=== PATIENT | female | born 1970 | race Caucasian/White ===

== ENCOUNTER 2016-11-08 00:17 | Inpatient (IN) | payer OTHER ==
--- NOTE | ~2016-11-08 | DS ---
Unit #: [id number] #: [id number] Patient: JASON TALBERT [id number] [place] [address] [id number] MR#: [id number] NAME: JASON TALBERT. ROOM: 16 Age: 45 Sex: F Admission Date: 11/08/2016 : 1970 Discharge Date: 11/13/2016 Attending Physician: Miguel Ángel Mays M.D. Primary Care Physician: Primary Care Physician No DISCHARGE SUMMARY REASON FOR ADMISSION Depression. DIAGNOSTIC STUDIES LABORATORY RESULTS: Unremarkable except alkaline phosphatase 115. HOSPITAL COURSE The patient was admitted to inpatient unit on 11/08/2016 and discharged on 11/13/2016. The patient was treated with group therapy, individual therapy, and medication management. The patient responded well with the above modalities of treatment. Subsequently, the patient was discharged with a plan to follow up in outpatient program. DISCHARGE MEDICATIONS Neurontin 800 mg q.i.d. for neuropathy, Celexa 40 mg once daily for depression, Desyrel 100 mg at bedtime for sleep, and Vistaril 25 mg q.i.d. for anxiety. DISCHARGE DIAGNOSES Psychiatric: 1. Major depressive disorder, recurrent, severe. 2. Opioid use disorder, severe. 3. Cannabis use disorder, moderate. Secondary diagnosis: Deferred. Medical diagnosis: Please refer to H and P. Stressors: Psychosocial stressors. DISCHARGE INSTRUCTIONS The patient is to follow up in outpatient clinic as per social services aide. CONDITION ON DISCHARGE The patient was pleasant and cooperative. Denied any psychotic symptom or any suicidal ideation. PROGNOSIS Guarded. DIET AND ACTIVITY As tolerated. Unit #: [id number] #: [id number] Patient: JASON TALBERT Dictated by... Santiago FelipeC/marisl TD: 11/14/2016 18:07 JOB #: [id number] DISCHARGE SUMMARY X Miguel Ángel Mays MD X DISCHARGE SUMMARY
--- NOTE | ~2016-11-08 | PN ---
Unit #: [id number] #: [id number] Patient: JASON TALBERT [id number] [facility] [address] [place] [address] [id number] MR#: [id number] NAME: JASON TALBERT. ROOM: [facility] Age: 45 Sex: F Admission Date: 11/08/2016 : 1970 Attending Physician: Miguel Ángel Mays M.D. Admitting Physician: Miguel Ángel Mays M.D. Primary Care Physician: Primary Care Physician No [facility] PROGRESS NOTES DATE OF SERVICE 11/09/2016 DISCUSSION Ms. Soria is a 45-year-old white female seen on 11/09/2016. The patient was isolative, guarded, flat affect. The patient reports making progress. Mood continues to be sad, dysphoric, and flat affect, guarded. The patient was able to contract for safety, but still having above-mentioned symptoms. Complete Review of Systems: Unremarkable. MENTAL STATUS EXAMINATION General Appearance: The patient dressed casually. Attention span, concentration: Fair. Oriented in place and person. Mood and affect: Sad, dysphoric, withdrawn, isolative. Speech: Monotone. Thought process: [place]. Association: The patient denied any thoughts of harming self or others or any psychotic symptom. Recent and remote memory: Poor. Insight and judgment: Poor. DIAGNOSES 1. Mood disorder not otherwise specified. 2. Rule out bipolar mood disorder. ASSESSMENT/PLAN Advised to continue with current medication and therapeutic protocol. We will monitor response to medication and make further adjustment of medication as the patient is still having significant symptoms of depression. The patient also has a history of mild MR, chronically mentally ill. [facility] and receives outpatient services through [facility]. Dictated by... Santiago Felipe/nick TD: 11/11/2016 12:43 JOB #: [id number] Unit #: [id number] #: [id number] Patient: JASON TALBERT [facility] PROGRESS NOTES X Miguel Ángel Mays MD X PROGRESS NOTE
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
--- NOTE | ~2016-11-08 | PN ---
Unit #: [id number] #: [id number] Patient: ESTELLA TALBERT [id number] [facility] [address] [place] [address] [id number] MR#: [id number] NAME: ESTELLA TALBERT. ROOM: 16 Age: 45 Sex: F Admission Date: 11/08/2016 : 1970 Attending Physician: Miguel Ángel Mays M.D. Admitting Physician: Miguel Ángel Mays M.D. Primary Care Physician: Primary Care Physician Marleny ASH PROGRESS NOTES DATE 11/10/2016 DISCUSSION Estella is a 45-year-old female seen on 11/10/2016. The patient continues to be sad, dysphoric, withdrawn, isolative, flat affect, guarded. The patient reports making progress. . Complete review of systems unremarkable. MENTAL STATUS EXAMINATION General appearance: Patient dressed casually. Attention span and concentration fair. Oriented in place and person. Mood and affect sad/dysphoric. Withdrawn, isolative, flat affect, guarded. The patient however, denied any thoughts of harming self or others. Speech monotone. . Recent and remote memory poor. Insight and judgment poor. DIAGNOSIS Major depressive disorder ASSESSMENT/PLAN Advised to continue with the current medication and therapy protocol. We will monitor response to medication and make further adjustment of medication. Dictated by... Santiago Felipe/niya TD: 11/12/2016 08:47 JOB #: [id number] Unit #: [id number] #: [id number] Patient: ESTELLA TALBERT [facility] PROGRESS NOTES X Miguel Ángel Mays MD PROGRESS NOTE
--- NOTE | ~2016-11-08 | HP ---
Unit #: [id number] #: [id number] Patient: ESTELLA TALBERT [id number] [place] [address] [id number] I MR#: [id number] NAME: ESTELLA TALBERT. ROOM: 16 Age: 45 Sex: F Admission Date: 11/08/2016 : 1970 Attending Physician: Miguel Ángel Mays M.D. Admitting Physician: Miguel Ángel Mays M.D. Primary Care Physician: Primary Care Physician No HISTORY AND PHYSICAL HISTORY OF PRESENT ILLNESS Estella is a 45 year old admitted to [address] [place] [address] because of her abuse of opioids. PAST MEDICAL HISTORY 1. History of opioid abuse. 2. Hypothyroidism. 3. COPD. 4. Seizure disorder. 5. Degenerative disc disease. 6. Hyperlipidemia. PAST SURGICAL HISTORY Low back. ALLERGIES No known drug allergies. SOCIAL HISTORY Smokes one pack per day. Denies alcohol. Admits to a long history of opioid abuse. FAMILY HISTORY Medically noncontributory. REVIEW OF SYSTEMS CONSTITUTIONAL: No fever or chills. HEENT: Denies any sore throat, ear pain or runny nose. CARDIOVASCULAR: Denies chest pain, irregular heart rhythm or palpitations. CHEST: Denies shortness of breath or cough. No hemoptysis. GASTROINTESTINAL: Denies nausea, vomiting, diarrhea or chronic constipation. ENDOCRINE: Denies history of increased thirst or urination. No recent significant weight loss or gain. GENITOURINARY: Denies dysuria, frequency, or hematuria. SKIN: Denies any rashes. HEMATOLOGIC: Denies history of increased bleeding or bruising. MUSCULOSKELETAL: Denies any hot, swollen joints. No generalized muscle pain. NEUROLOGIC: Denies problems with vision or speech. No frequent, severe headaches. No numbness, tingling or weakness in any extremities. Denies loss of bladder or bowel control. CURRENT MEDICATIONS Unit #: [id number] #: [id number] Patient: ESTELLA TALBERT 1. Detox protocol 2. Lipitor 20 mg daily 3. Macrobid 100 mg daily 4. Dilantin 300 mg b.i.d. 5. Nicotine patch 14 mg daily 6. Symbicort 2 puffs b.i.d. 7. Keppra 1500 units b.i.d. 8. Synthroid 0.05 mg daily 9. Claritin 10 mg daily 10. Celexa 40 mg daily 11. Neurontin 800 mg q.i.d. PHYSICAL EXAMINATION GENERAL: Alert, well-nourished, in no apparent distress. VITAL SIGNS: Blood pressure 104/82, heart rate 80, respirations 16, temperature 98.6. WEIGHT: 176 pounds. HEIGHT: 5'4". SKIN: Warm and dry without rash or lesion. HEENT: Normocephalic. TMs not viewed. Oral and nasal passages clear. Conjunctivae clear. Pupils equal, round and reactive to light and accommodation. Extraocular movements intact. NECK: Supple without lymphadenopathy or thyromegaly. HEART: Regular rate and rhythm without murmur. LUNGS: Clear. ABDOMEN: Soft, nontender. : Not done. EXTREMITIES: No evidence of cyanosis, clubbing or edema. Moves all extremities without focal deficit. NEUROLOGICAL: Grossly within normal limits. Cranial Nerves: II: Visual presley are intact. III, IV AND : Extraocular movements are intact. Pupils are equal, round and reactive to light. V: Facial sensation is grossly normal. VII: Facial movements and expression are normal. VIII: Auditory acuity grossly intact. IX, X: Uvula is midline. Phonation is normal. XI: Patient shrugs shoulders and turns head normally. XII: Tongue protrudes in the midline. Sensory and Motor Function: Sensory and motor sensation is grossly normal. Motor: moves all extremities well. Coordination: Gait is normal. Deep Tendon Reflexes: Intact. IMPRESSION Psychiatric admission RECOMMENDATIONS PSYCHIATRIC: Per psychiatrist. MEDICAL: 1. I see no contraindications to participating in facility's activities. 2. Continue Lipitor, Dilantin, Symbicort, Keppra, Synthroid. Check a Dilantin level. MEDICAL PROGNOSIS Good. MEDICAL CONDITION Stable. Unit #: [id number] #: [id number] Patient: ALLBRITTEN,ESTELLA Martinez Dictated by... Angelica Green P.A.-C. for Santiago Nunez/ryan TD: 11/08/2016 19:55 JOB #: [id number] HISTORY AND PHYSICAL X Angelica Green HISTORY AND PHYSICAL
--- NOTE | ~2016-11-08 | CO ---
Unit #: [id number] #: [id number] Patient: ESTELLA TALBERT [id number] [place] [address] [id number] MR#: [id number] NAME: ESTELLA TALBERT ROOM: 16 Age: 45 Sex: F Admission Date: 11/08/2016 : 1970 Attending Physician: Miguel Ángel Mays M.D. Consultation Date: 11/08/2016 CONSULTATION REPORT SUBJECTIVE Estella is a 45-year-old who complains of low back pain. This pain increases with movement especially going from sitting to standing position. She denies any numbness, tingling, or weakness in her lower extremities. She tells me this is an ongoing problem. PLAN Relafen 500 mg one p.o. b.i.d. Dictated by... Angelica Green P.A.-C. for Santiago Nunez/jessy TD: 11/11/2016 14:24 JOB #: [id number] CONSULTATION REPORT X Angelica Green CONSULTATION REPORT
--- NOTE | ~2016-11-08 | PN ---
Unit #: [id number] #: [id number] Patient: ESTELLA TALBERT [id number] [facility] [address] [place] [address] [id number] MR#: [id number] NAME: ESTELLA TALBERT. ROOM: 16 Age: 45 Sex: F Admission Date: 11/08/2016 : 1970 Attending Physician: iMguel Ángel Mays M.D. Admitting Physician: Miguel Ángel Mays M.D. Primary Care Physician: Primary Care Physician Marleny ASH PROGRESS NOTES DATE OF SERVICE: 11/11/2016 DISCUSSION Ms. Estella Cook is a 45-year-old female, seen on 11/11/2016. The patient interviewed, chart reviewed, and obtained information from nursing staff. The patient was compliant and cooperative. Mood was sad, dysphoric, flat affect, guarded. The patient was able to maintain safe behavior. REVIEW OF SYSTEMS Complete review of systems unremarkable. MENTAL STATUS EXAMINATION General appearance, the patient dressed casually. Attention span and concentration, fair. Oriented in place and person. Mood and affect, sad and dysphoric. Speech, monotone. Thought process, concrete. The patient denied any thoughts of harming self or others or any psychotic symptom. Recent and remote memory, poor. Insight and judgment, poor. DIAGNOSIS Bipolar mood disorder, not otherwise specified. ASSESSMENT AND PLAN Advised to continue with current medication and therapeutic protocol. We will monitor response to medication and make further adjustment of medication. Dictated by... Santiago Felipe/jessy TD: 11/14/2016 06:05 JOB #: [id number] Unit #: [id number] #: [id number] Patient: ESTELLA TALBERT [facility] PROGRESS NOTES X Miguel Ángel Mays MD PROGRESS NOTE
--- NOTE | ~2016-11-08 | PN ---
Unit #: [id number] #: [id number] Patient: ESTELLA PORTER [id number] [facility] [address] [place] [address] [id number] MR#: [id number] NAME: ESTELLA PORTER. ROOM: 16 Age: 45 Sex: F Admission Date: 11/08/2016 : 1970 Attending Physician: Miguel Ángel Mays M.D. Admitting Physician: Miguel Ángel Mays M.D. Primary Care Physician: Primary Care Physician Marleny ASH PROGRESS NOTES DATE OF SERVICE: 11/12/2016 DISCUSSION Ms. Estella Porter is a 45-year-old female, seen on 11/12/2016. The patient interviewed, chart reviewed, and obtained information from nursing staff. The patient was compliant and cooperative. Mood was sad and dysphoric with flat affect, but able to maintain safe behavior. No aggression. REVIEW OF SYSTEMS Complete review of systems unremarkable. MENTAL STATUS EXAMINATION General appearance, the patient dressed casually. Attention span and concentration, fair. Oriented in place and person. Mood and affect were sad and dysphoric. Speech, monotone. Thought process, concrete. The patient denied any thoughts of harming self or others or any psychotic symptom. Recent and remote memory, poor. Insight and judgment, poor. DIAGNOSIS Bipolar mood disorder, not otherwise specified. ASSESSMENT AND PLAN Advised to continue with current medication and therapeutic protocol. We will monitor response to medication and make further adjustment of medication. Dictated by... Santiago Felipe/jessy TD: 11/14/2016 05:44 JOB #: [id number] Unit #: [id number] #: [id number] Patient: ESTELLA PORTER [facility] PROGRESS NOTES X Miguel Ángel Mays MD PROGRESS NOTE
[~2016-11-08 00:17] MED LIST: AMOXICILLIN PO; DEPAKOTE PO; DILANTIN PO; ZITHROMAX PO
[2016-11-08 09:25] LABS: BASOPHIL% 0.5 % (0-2.5); EOSINOPHIL# 0.2 X10e3 (0-0.7); EOSINOPHIL% 2.4 % (0.0-7.0); HEMATOCRIT 42.3 % (35.0-45.0); HEMOGLOBIN 14.1 gm/dL (12.0-16.0); LYMPHOCYTE# 1.3 X10e3 (1.0-3.5); LYMPHOCYTE% 16.1 % (17.0-45.0); MEAN CELL VOLUME 96.8 FL (83-96); MEAN CORPUSCULAR HEMOGLOBIN 32.3 PG (28-34); MEAN CORPUSCULAR HGB CONC 33.4 g/dL (30-36); MEAN PLATELET VOLUME 8.1 FL (6.5-11.5); MONOCYTE# 0.4 X10e3 (0-1.0); MONOCYTE% 5.5 % (3.0-12.0); NEUTROPHIL% 75.5 % (40-75); PLATELET COUNT 224 X10e3 (140-420); RED BLOOD COUNT 4.37 X10e (3.90-5.30); RED CELL DISTRIBUTION WIDTH 13.2 % (11.0-15.5); WHITE BLOOD COUNT 7.9 X10e3 (4.0-10.5)
[2016-11-08 09:30] LABS: DIFF IND NO
[2016-11-08 09:47] LABS: THYROID STIMULATING HORMONE 3.31 uIU/ml (0.34-5.60)
[2016-11-08 09:56] LABS: FREE THYROXIN (T4) 0.78 ng/dL (0.58-1.64)
[2016-11-08 10:38] LABS: ALBUMIN SERUM 3.8 g/dL (3.5-5.0); ALKALINE PHOSPHATASE 115 U/L (32-92); ALT (SGPT) 18 U/L (10-40); AST (SGOT) 17 U/L (10-42); BILIRUBIN,TOTAL 0.2 mg/dL (0.2-2.0); BLOOD UREA NITROGEN 10 mg/dL (9-23); BUN/CREATININE RATIO 14.28; CALCIUM SERUM 8.8 mg/dL (8.4-10.2); CARBON DIOXIDE 27 mmol/L (22-31); CHLORIDE 104 mmol/L (100-111); CREATININE SERUM 0.7 mg/dL (0.6-1.4); DILANTIN (PHENYTOIN) <2.5 ug/mL (10.0-20.0); GLOM FILT RATE Estimated ABOVE60 mL/min (>60); GLUCOSE FASTING 95 mg/dL (70-110); POTASSIUM 4.6 mmol/L (3.5-5.1); PROTEIN TOTAL SERUM 6.9 g/dL (6.0-8.3); SODIUM 138 mmol/L (135-145)
[2016-11-10 10:02] LABS: URINE APPEARANCE CLEAR; URINE BILIRUBIN NEG (NEG); URINE BLOOD NEG (NEG); URINE COLOR YELLOW; URINE GLUCOSE NEG (NEG); URINE KETONE NEG (NEG); URINE LEUKOCYTE ESTERASE NEG (NEG); URINE NITRATE NEG (NEG); URINE PH 6.5 (5-8); URINE PROTEIN NEG (NEG); URINE SPECIFIC GRAVITY 1.012 (1.003-1.035); URINE UROBILINOGEN 0.2 MG/DL (NEG)
[2016-11-10 10:25] LABS: AMPHETAMINE NEG (NEG); BARBITURATES NEG (NEG); BENZODIAZEPINES NEG (NEG); COCAINE NEG (NEG); MARIJUANA NEG (NEG); OPIATES NEG (NEG); TRICYCLIC ANTIDEPRESSANTS NEG (NEG); U METHADONE NEG (NEG)
== END 2016-11-13 10:40 | disposition home or self-care (01) | DRG 885 ==
LOC: P1S 00:17
PROVIDERS: Psychiatry & Neurology Psychiatry
PROC: HZ2ZZZZ Detoxification Services for Substance Abuse Treatment (ICD-10-PCS; principal; 2016-11-08)
DX: F33.2 Major depressive disorder, recurrent severe without psychotic features (principal); F11.20 Opioid dependence, uncomplicated; E03.9 Hypothyroidism, unspecified; J44.9 Chronic obstructive pulmonary disease, unspecified; G40.909 Epilepsy, unspecified, not intractable, without status epilepticus; F43.10 Post-traumatic stress disorder, unspecified; F41.9 Anxiety disorder, unspecified; F12.20 Cannabis dependence, uncomplicated; F17.200 Nicotine dependence, unspecified, uncomplicated; M54.5 Low back pain
CPT/HCPCS: 80053; 80185; 80307; 81003; 84439; 84443; 84703; 85025